=== PATIENT | male | born 1995 | race Caucasian/White ===

== ENCOUNTER 2018-02-28 09:23 | Emergency (ER) | payer OTHER ==
[2018-02-28 09:33] VITALS: BMI 24.3
[2018-02-28 09:34] VITALS: O2SAT 98
--- NOTE | 2018-02-28 10:44 | ED PDOC ---
HPI: Skin/Bite Injury Time Seen by Provider: 02/28/18 09:47 Chief Complaint (Nursing): Abnormal Skin Integrity Chief Complaint (Provider): Skin burning History Per: Patient History/Exam Limitations: no limitations Additional Complaint(s): Pt reports burning to skin on chest and back since 5:30 AM today, minimal itching. Did not take OTC meds. States he was went to tanning bed 3 days ago. Denies SOB, throat swelling. Past Medical History Reviewed: Nursing Documentation, Vital Signs Vital Signs: Last Vital Signs Temp 97.9 F 02/28/18 09:33 Pulse 87 02/28/18 09:33 Resp 20 02/28/18 09:33 BP 148/93 H 02/28/18 09:33 Pulse Ox 98 02/28/18 09:33 - Medical History PMH: No Chronic Diseases Denies: Chronic Kidney Disease - Surgical History Surgical History: Appendectomy - Family History Family History: States: Unknown Family Hx - Social History Current smoker - smoking cessation education provided: No Alcohol: None - Home Medications Home Medications: Ambulatory Orders Medication Instructions Recorded Lidocaine/Aloe Vera [Aloe Vera 170 gm TP DAILY PRN #1 spray 02/28/18 Burn Relief [place]] - Allergies Allergies/Adverse Reactions: Allergies Allergy/AdvReac Type Severity Reaction Status Date / Time No Known Allergies Allergy Verified 11/22/13 00:44 Review of Systems Constitutional: Negative for: Fever, Chills Respiratory: Negative for: Cough, Shortness of Breath Skin: Positive for: Rash. Negative for: Lesions, Jaundice Physical Exam - Reviewed Nursing Documentation Reviewed: Yes Vital Signs Reviewed: Yes - Physical Exam Appears: Positive for: Well, No Acute Distress Skin: Positive for: Rash (Erythema chest/abdomen/back, no induration, no lesions, blanching, no vesicles, no TTP, no crepitus) Cardiovascular/Chest: Positive for: Regular Rate, Rhythm Respiratory: Positive for: Normal Breath Sounds Neurologic/Psych: Positive for: Alert, Oriented - ECG O2 Sat by Pulse Oximetry: 98 Medical Decision Making Medical Decision Makin yo male with rash. - Benadryl - Pepcid - Prednisone Disposition - Clinical Impression Clinical Impression: First degree burn - Disposition Referrals: [facility] [Outside] Bob Winchester MD [Staff Provider] - Disposition: Routine/Home Disposition Time: 12:05 Condition: IMPROVED Prescriptions: Lidocaine/Aloe Vera [Aloe Vera Burn Relief [place]] 170 gm TP DAILY PRN #1 spray PRN Reason: Allergy Symptoms Instructions: Skin [place] Forms: [facility] (Swedish) Print Language: [place]
[2018-02-28 12:23] VITALS: BP 127/73; PULSE 81; RESP 17; TEMP 98.1
== END 2018-02-28 12:30 | disposition home or self-care (01) ==
LOC: H.ER 09:23
DX: T21.11XA Burn of first degree of chest wall, initial encounter (principal); Y92.89 Other specified places as the place of occurrence of the external cause